=== PATIENT | female | born 1985 | race Caucasian/White ===

== ENCOUNTER → 2020-01-10 10:32 | Outpatient (BNVA) | payer BC, SELFPAY | PROVIDERS: Visit Provider Registered Nurse | DX: R53.83 Other fatigue (principal); N92.6 Irregular menstruation, unspecified | CPT/HCPCS: 81000; 84443; 85025 ==

== ENCOUNTER → 2020-05-16 09:09 | Outpatient (BNVA) | payer BC, SELFPAY | PROVIDERS: Visit Provider Nurse Practitioner Family | DX: N89.8 Other specified noninflammatory disorders of vagina (principal) | CPT/HCPCS: 87070; 87205 ==